=== PATIENT | male | born 1955 | race Caucasian/White ===

== ENCOUNTER 2019-06-18 06:10 | Day surgery (SDC) | payer OTHER ==
[~2019-06-18] VITALS: Ht 170.2 cm; Wt 73.1 kg
--- NOTE | 2019-06-18 06:47 | NUR ---
History, Chart, Medications and Allergies reviewed before start of procedure. Patient confirms NPO status and agrees with scheduled surgery. Lungs clear T/O to Auscultation. Pre-Op teaching done. Pt verbalizes understanding. Patient reports completing Chlorhexadine shower X2 prior to admission to hospital. Patient States Post-Procedure ride home has been arranged. PATIENT HAD EARING IN LEFT EAR, TOOK OUT AND PLACED IN CLEAR BAG WITH HIS NAME STICKER, IN PERSONAL BELONGINGS BAG. WILL PLACE UPPER DENTURE AND GLASSES IN PACU FOR PATIENT. NO HEARING DEVICES PRESENT AT ADMIT.
--- NOTE | 2019-06-18 07:11 | NUR ---
TRACKER CARD GIVEN TO PATIENT'S SEAN, OPPORTUNITY FOR QUESTIONS PROVIDED.
--- NOTE | 2019-06-18 07:14 | NUR ---
SASH FINISHER REPORT COMPLETED AT BEDSIDE, WITH COY BOLES RN.
--- NOTE | 2019-06-18 07:15 | NUR ---
PLAN IS TO PLACE CATHETER SO WILL NOT GET UP TO THE BR PRIOR TO OR.
--- NOTE | 2019-06-18 11:08 | NUR ---
1052- ASSUMED CARE OF PATEINT FROM ALLEGRA ALVAREZ RN.
--- NOTE | 2019-06-18 11:22 | NUR ---
Patient states he would like to go home. Reports that his nausea is improved since medicated with Zofran. Tolerated juice and crackers with no increase to nausea. No emesis. Reporst pain to middle abdomen tolerable and rates 4/10. Surgical sites x3 to abdomen, glue intact to surgical sites. No visible drainage, swelling, erythema or bruising noted to Abdomen. Discharge instructions reviewed with patient. Patient verbalizes understanding. Copy given to patient to take home. Significant other, Glenna, to drive home today. Up to dress with steady gait.
== END 2019-06-18 11:31 | disposition home or self-care (01) ==
LOC: ORSCMMR 06:10 → ORD 07:30 → ORSCMMR 11:31
PROVIDERS: Surgery
PROC: 0YUA4JZ Supplement Bilateral Inguinal Region with Synthetic Substitute, Percutaneous Endoscopic Approach (ICD-10-PCS; principal; 2019-06-18 07:30)
PROC: 8E0W4CZ Robotic Assisted Procedure of Trunk Region, Percutaneous Endoscopic Approach (ICD-10-PCS; principal; 2019-06-18 07:30)
DX: K40.20 Bilateral inguinal hernia, without obstruction or gangrene, not specified as recurrent (principal); F17.210 Nicotine dependence, cigarettes, uncomplicated
CPT/HCPCS: 49650; S2900; A9270-GY; C1781; J0690; J1100; J1885; J2250; J2405; J2704; J2710; J3010; J7120

== ENCOUNTER → 2020-05-29 | Outpatient (CLI) | payer SELFPAY | LOC: LAB SHORT 12:20 → PLD 12:20 | DX: C44.1121 Basal cell carcinoma of skin of right upper eyelid, including canthus (principal) | CPT/HCPCS: 88305 ==

== ENCOUNTER 2022-05-20 09:00 | Day surgery (SDC) | payer MEDICARE ==
[~2022-05-20] VITALS: Ht 170.2 cm; Wt 69.0 kg
--- NOTE | 2022-05-20 09:37 | NUR ---
PT ADMITTED TO [facility]. AGREES WITH PLANNED PROCEDURE. TOLERATED PREP. STATES LAST BM CLEAR. LUNG SOUNDS CLEAR.
--- NOTE | 2022-05-20 09:42 | NUR ---
05/20/22 0942 Govind Palacio HISTORY, CHART, MEDICATIONS AND ALLERGIES REVIEWED BEFORE START OF PROCEDURE. PATIENT CONFIRMS NPO STATUS AND AGREES WITH SCHEDULED PROCEDURE. 3-LEAD EKG REVIEWED WITH PHYSICIAN PRIOR TO START OF PROCEDURE. MONITOR INTACT WITH CONTINUOUS PULSE OXIMETRY,CAPNOGRAPHY, 3-LEAD EKG, INTERMITTENT BP. SUPPLEMENTAL O2 TO BE TITRATED THROUGHOUT PROCEDURE TO MAINTAIN O2 SATURATION ABOVE 90%. PATIENT DETERMINED TO BE ASA APPROPRIATE FOR PROPOFOL SEDATION PRIOR TO START OF PROCEDURE BY DR. CHOWDHURY.
== END 2022-05-20 23:34 | disposition home or self-care (01) ==
LOC: ORSCMMR 09:00 → ORD 10:00 → ORSCMMR 23:34
PROVIDERS: Internal Medicine Gastroenterology
PROC: 0DBM8ZX Excision of Descending Colon, Via Natural or Artificial Opening Endoscopic, Diagnostic (ICD-10-PCS; principal; 2022-05-20 10:00)
PROC: 0DBL8ZX Excision of Transverse Colon, Via Natural or Artificial Opening Endoscopic, Diagnostic (ICD-10-PCS; principal; 2022-05-20 10:00)
PROC: 0DBN8ZX Excision of Sigmoid Colon, Via Natural or Artificial Opening Endoscopic, Diagnostic (ICD-10-PCS; principal; 2022-05-20 10:00)
DX: Z12.11 Encounter for screening for malignant neoplasm of colon (principal); Z86.010 Personal history of colon polyps; D12.3 Benign neoplasm of transverse colon; K63.5 Polyp of colon; F17.210 Nicotine dependence, cigarettes, uncomplicated
CPT/HCPCS: 88305; J2704; J7120

== ENCOUNTER 2023-05-28 10:07 | Observation (INO) | payer MEDICARE ==
[~2023-05-28] VITALS: Ht 170.2 cm; Wt 65.5 kg
[2023-05-28] MEDS ORDERED: PLAVIX75 MG PO (14:17)
[2023-05-28] MEDS ORDERED: LOSA50 PO (14:18)
[2023-05-28] MEDS ORDERED: HYDCHL25 PO (14:18)
[2023-05-28] MEDS ORDERED: SPIRONOLACTONE25 MG PO (14:18)
[2023-05-28 19:42] LABS: BASOPHILS ABSOLUTE AUTO 0.07 K/mm3 (0.00-0.23); BASOPHILS PERCENT AUTO 1 % (0-2); EOSINOPHILS ABSOLUTE AUTO 0.36 K/mm3 (0.00-0.68); EOSINOPHILS PERCENT AUTO 3 % (0-6); Hematocrit 28.7 % (37.0-53.0); Hemoglobin 10.1 g/dL (13.5-17.5); IMMATURE GRAN ABSOLUTE AUTO 0.07 K/mm3 (0.00-0.10); IMMATURE GRAN PERCENT AUTO 1 % (0-1); LYMPHOCYTES ABSOLUTE AUTO 1.45 K/mm3 (0.84-5.20); LYMPHOCYTES PERCENT AUTO 12 % (21-46); MONOCYTES ABSOLUTE AUTO 1.46 K/mm3 (0.16-1.47); MONOCYTES PERCENT AUTO 12 % (4-13); Mean Corpuscular HGB 31.5 pg (26.0-34.0); Mean Corpuscular HGB Conc 35.2 g/dL (31.5-36.5); Mean Corpuscular Volume 89 fL (80-100); Mean Platelet Volume 8.2 fL (9.1-12.4); NEUTROPHILS ABSOLUTE AUTO 9.06 K/mm3 (1.96-9.15); NEUTROPHILS PERCENT AUTO 73 % (41-73); Platelet Count 507 K/mm3 (150-400); RDW Coefficient Variation 11.9 % (11.7-14.2); RDW Standard Deviation 38.5 fL (35.1-46.3); Red Blood Cell Count 3.21 M/mm3 (4.30-5.90); White Blood Cell Count 12.47 K/mm3 (4.00-11.30)
[2023-05-28 20:02] LABS: Albumin, Blood 2.9 g/dL (3.4-5.0); Albumin/Globulin Ratio 0.7 (0.8-1.8); Bilirubin, Total 0.4 mg/dL (0.1-1.0); Bun/Creatinine Ratio 12.3 (12.0-20.0); Calcium, Blood 8.4 mg/dL (8.5-10.1); Creatinine, Blood 0.81 mg/dL (0.60-1.20); Globulin, Blood 4.3 g/dL (2.2-4.0); Potassium, Blood 3.9 mmol/L (3.5-5.5); Total Protein, Blood 7.2 g/dL (6.4-8.2)
[2023-05-28 20:05] LABS: International Normalized Ratio 1.02; Prothrombin Time Results 10.7 Sec (9.7-11.5)
--- NOTE | 2023-05-28 21:25 | NUR ---
REPORT RECEIVED FROM JOSEPH RANGEL. WILL AWAIT PATIENT TRANSFER TO PCU 19.
[2023-05-28 21:35] VITALS: BP 149/73
--- NOTE | 2023-05-28 23:03 | NUR ---
ASSUMED CARE OF PATIENT AT 2130 UPON ARRIVAL TO ROOM PCU19 VSS AND NO ACUTE NEEDS IDENTIFIED AT THIS TIME. SEE SHIFT ASSESSMENT FOR FULL ASSESSMENT DETAILS.
[2023-05-29 00:19] VITALS: BP 141/67
[2023-05-29 03:59] VITALS: BP 125/70
[2023-05-29 04:26] LABS: BASOPHILS ABSOLUTE AUTO 0.07 K/mm3 (0.00-0.23); BASOPHILS PERCENT AUTO 1 % (0-2); EOSINOPHILS ABSOLUTE AUTO 0.41 K/mm3 (0.00-0.68); EOSINOPHILS PERCENT AUTO 4 % (0-6); Hematocrit 27.2 % (37.0-53.0); Hemoglobin 9.4 g/dL (13.5-17.5); IMMATURE GRAN ABSOLUTE AUTO 0.06 K/mm3 (0.00-0.10); IMMATURE GRAN PERCENT AUTO 1 % (0-1); LYMPHOCYTES ABSOLUTE AUTO 1.39 K/mm3 (0.84-5.20); LYMPHOCYTES PERCENT AUTO 12 % (21-46); MONOCYTES ABSOLUTE AUTO 1.52 K/mm3 (0.16-1.47); MONOCYTES PERCENT AUTO 13 % (4-13); Mean Corpuscular HGB Conc 34.6 g/dL (31.5-36.5); Mean Corpuscular Volume 90 fL (80-100); Mean Platelet Volume 8.3 fL (9.1-12.4); NEUTROPHILS ABSOLUTE AUTO 8.32 K/mm3 (1.96-9.15); NEUTROPHILS PERCENT AUTO 71 % (41-73); Platelet Count 478 K/mm3 (150-400); RDW Coefficient Variation 11.9 % (11.7-14.2); RDW Standard Deviation 39.3 fL (35.1-46.3); Red Blood Cell Count 3.03 M/mm3 (4.30-5.90); White Blood Cell Count 11.77 K/mm3 (4.00-11.30)
[2023-05-29 04:48] LABS: Bun/Creatinine Ratio 13.6 (12.0-20.0); Calcium, Blood 8.1 mg/dL (8.5-10.1); Creatinine, Blood 0.74 mg/dL (0.60-1.20); Potassium, Blood 3.9 mmol/L (3.5-5.5)
--- NOTE | 2023-05-29 05:26 | NUR ---
SHIFT SUMMARY PATIENT REMAINED ALERT AND ORIENTED X 4 THROUGHOUT ENTIRETY OF SHIFT. HE HAD ONE EPISODE OF MODERATE LEG CRAMPS AND WAS MEDICATED PER EMAR WITH GOOD BENEFIT. ABLE TO FOLLOW VERBAL COMMANDS, REPOSITION AND MAKE PURPOSEFUL MOVEMENTS INDEPENDENTLY, AND MAKE NEEDS KNOWN. BEDREST ORDERS IN PLACE. MONITOR SHOWED SR WITH HR IN 80'S-90'S AND STABLE BP. PATIENT REMAINED ON ROOM AIR THROUGHOUT ENTIRETY OF SHIFT WITH O2 SATURATIONS > 97%. NO BM THIS SHIFT. UTILIZES BEDSIDE URINAL INDEPENDENTLY. AREA OF CONCERN IN R FEMORAL REMAINED REDUCED IN SIZE WITH NO REDNESS OR TENDERNESS REPORTED BY PT. PIV TO LAC INFUSING NS AT 100mL/HR. WILL CONTINUE TO MONITOR AND REPORT TO ONCOMING NURSE.
--- NOTE | 2023-05-29 07:35 | NUR ---
AM ASSESSMENT: Pt resting in bed. A/O x4. States that he is feeling a little anxious and that he just doesn't like being in hospitals. Will treat per orders. LS clear. HR reg. BT positive. Pulses palp. R groin site with small golf ball size knot noted. No bruising. Pt states that he has some burning pain into his groin, but that it is better than when he arrived. Also c/o some chest pain with deep breath and cough. Pt denies other needs. States that he wants to get up and walk around but understands bedrest order. Call light in reach. Will monitor.
[2023-05-29 07:37] VITALS: BP 123/56
[2023-05-29 11:10] VITALS: BP 129/63
[2023-05-29 15:21] VITALS: BP 135/75
[2023-05-29] MEDS ORDERED: Acetaminophen650 M1 PO (17:06)
--- NOTE | 2023-05-29 18:01 | NUR ---
DISCHARGE: Pt was given verbal and written discharge instructions. Verbalized understanding, denies questions. IV discontinued, cath intact. Denies questions. Pt left via w/c with aid. Stable at time of discharge.
== END 2023-05-29 17:42 | disposition home or self-care (01) ==
LOC: ER 10:07 → PCU 19:57
PROVIDERS: Nurse Practitioner Acute Care; Student in an Organized Health Care Education/Training Program; ADMIT Internal Medicine
DX: I72.3 Aneurysm of iliac artery (principal); I10 Essential (primary) hypertension; F41.9 Anxiety disorder, unspecified; E87.1 Hypo-osmolality and hyponatremia; I70.1 Atherosclerosis of renal artery; F17.200 Nicotine dependence, unspecified, uncomplicated; Z88.5 Allergy status to narcotic agent
CPT/HCPCS: 36416; 76936; 80048; 80053; 85025; 85610; 93926; 96374; 99285-25; A9270; G0378; J3010; J7030

== ENCOUNTER 2025-06-15 10:07 | Day surgery (SDC) | payer MEDICARE ==
[~2025-06-15] VITALS: Ht 167.6 cm; Wt 69.9 kg
[2025-06-15] VITALS (17 sets, daily range): BP systolic 126–161; BP diastolic 67–88
[~2025-06-15 10:07] MED LIST: Acetaminophen650 M1 PO; HYDCHL25 PO; LOSA50 PO; PLAVIX75 MG PO; SPIRONOLACTONE25 MG PO
--- NOTE | 2025-06-15 10:48 | NUR ---
History, Chart, Medications and Allergies reviewed before start of procedure. Pre-Op teaching done. Pt verbalizes understanding. Patient confirms NPO status and agrees with scheduled surgery. Patient states colon prep results CLEAR.
--- NOTE | 2025-06-15 12:54 | NUR ---
06/15/25 9326 Govind Palacio CONFIRMED AND REVIEWED H&P, MEDCICATIONS, ALLERGIES, MEDICAL HISTORY, RESPIRATORY HISTORY, VITAL SIGNS, 3-LEAD EKG, CONSENTS, AND PHYSICIAN ORDERS. PATIENT CONFIRMS NPO STATUS AND AGREES WITH SCHEDULED PROCEDURE. MONITOR INTACT WITH CONTINUOUS PULSE OXIMETRY, CAPNOGRAPHY, 3-LEAD EKG, INTERMITTENT BP. SUPPLEMENTAL O2 TO BE TITRATED THROUGHOUT PROCEDURE TO MAINTAIN O2 SATURATION ABOVE 90%. PATIENT DETERMINED TO BE ASA APPROPRIATE FOR PROPOFOL SEDATION PRIOR TO START OF PROCEDURE BY DR. CHOWDHURY.
== END 2025-06-15 13:20 | disposition home or self-care (01) ==
LOC: ORSCMMR 10:07 → ORD 11:00 → ORSCMMR 13:20
PROVIDERS: Internal Medicine Gastroenterology
PROC: 0DBP8ZX Excision of Rectum, Via Natural or Artificial Opening Endoscopic, Diagnostic (ICD-10-PCS; principal; 2025-06-15 11:00)
PROC: 0DBN8ZX Excision of Sigmoid Colon, Via Natural or Artificial Opening Endoscopic, Diagnostic (ICD-10-PCS; principal; 2025-06-15 11:00)
PROC: 0DBK8ZX Excision of Ascending Colon, Via Natural or Artificial Opening Endoscopic, Diagnostic (ICD-10-PCS; principal; 2025-06-15 11:00)
DX: Z12.11 Encounter for screening for malignant neoplasm of colon (principal); K62.1 Rectal polyp; K63.5 Polyp of colon; D12.2 Benign neoplasm of ascending colon; Z86.0101 Personal history of adenomatous and serrated colon polyps; F17.210 Nicotine dependence, cigarettes, uncomplicated
CPT/HCPCS: 88305; J2704; J7120